=== PATIENT | male | born 1990 | race Caucasian/White ===

== ENCOUNTER 2018-12-15 08:35 | Emergency (ER) | payer SELFPAY ==
[2018-12-15] MEDS ORDERED: Naloxone 0.4 mg/mL 1mL Vial IV ONE (09:06)
[2018-12-15] MEDS ORDERED: Naloxone 0.4 mg/mL 1mL Vial ONE (09:11)
--- NOTE | 2018-12-15 09:11 | ED Physician Chart ---
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 History of Present Illness:: today Allergies:: Allergies Allergy/AdvReac Type Severity Reaction Status Date / Time No Known Allergies Allergy Verified 12/15/18 08:51 Vitals:: Vital Signs - 8 hr 12/15/18 08:42 HR 96 RR 18 BP 109/63 O2 Sat % 98 Review:: Nurse's Note Reviewed, EMS run form Reviewed, Patient unable to respond (homeless intoxicated) ED Review of Systems - Review of Systems General/Constitutional: No fever (unreliable non verbal) ED Past Medical History - Past Medical History Obtainable: No Social History: Alcohol Family Medical History - Family Member Mother History Unknown: Yes ED Physical Exam - Physical Examination General/Constitutional: Awake (lethargic glucose normal no response to narcan), No distress (poor response) Head: Atraumatic Eyes: Lids, conjuctiva normal ENMT: External ears, nose nl Respiratory: Nl effort/Exclusion Cardio Vascular: RRR GI: No tenderness/rebounding/guarding Extremities: No edema ED Assessment - Assessment General Assessment: intoxication altered mental status ED Septic Shock - . Is Septic Shock (SBP<90, OR Lactate>4 mmol\L) present?: No - <6hrs of presentation: Vital Signs: Vital Signs - 8 hr 12/15/18 08:42 HR 96 RR 18 BP 109/63 O2 Sat % 98 ED Reassessment (Disposition) - Reassessment Reassessment Condition:: Improved (awke beligerent refusing) - Patient Disposition Discharge/Transfer:: Elope/AWOL Condition at Disposition:: Stable, Improved (left without telling)
[2018-12-15 09:30] LABS: EOSINOPHILE ABSOLUTE 0.1 Th/cmm (0.1-0.4); RED CELL DISTRIBUTION WIDTH 12.5 % (11.5-20.0); WHITE BLOOD COUNT 5.4 Th/cmm (4.8-10.8)
[2018-12-15 09:51] LABS: % BASOPHILS 1.3 % (0.0-2.0); % EOSINOPHILS 1.9 % (0.0-5.0); % LYMPHOCYTES 23.2 % (20.0-50.0); % MONOCYTES 4.6 % (2.0-10.0); BASOPHILE ABSOLUTE 0.1 Th/cumm (0-0.2); HEMOGLOBIN 14.9 gm/dL (12-16); LYMPHOCYTE ABSOLUTE 1.3 Th/cmm (1.5-3.0); MEAN CELL VOLUME 92.7 fl (80-99); MEAN CORPUSCULAR HEMOGLOBIN 30.7 pg (26.0-30.0); MEAN CORPUSCULAR HGB CONC 33.1 pg (28.0-36.0); MEAN PLATELET VOLUME 6.9 fl; MONOCYTE ABSOLUTE 0.2 Th/cmm (0.3-1.0); NEUTROPHILE ABSOLUTE 3.7 Th/cmm (1.8-8.0); PLATELET COUNT 408 Th/cmm (150-400); RED BLOOD COUNT 4.85 Mil/cmm (4.30-5.70)
[2018-12-15 10:35] LABS: ALB/GLOB RATIO 1.6 (1.0-1.8); ALKALINE PHOSPHATASE 108 U/L (34-104); ANION GAP 14.1 (7.0-16.0); BILIRUBIN,TOTAL 0.8 mg/dL (0.3-1.0); BUN - UREA NITROGEN 8 mg/dL (7-25); CALCIUM SERUM 8.4 mg/dL (8.6-10.3); CARBON DIOXIDE 22.9 mEq/L (21.0-31.0); CHLORIDE 104 mEq/L (98-107); CREATININE - SERUM 0.8 mg/dL (0.7-1.3); GFR AFRICAN-AMERICAN > 60.0 ml/min (>90); GFR NON AFRICAN-AMERICAN > 60.0 ml/min; GLUCOSE 89 mg/dL (70-105); MAGNESIUM 2.3 mg/dL (1.9-2.7); SGOT 31 U/L (13-39); SGPT/ALT 23 U/L (7-52); SODIUM SERUM 138 mEq/L (136-145); TOTAL PROTEIN,SERUM 6.5 gm/dL (6.0-8.3)
[2018-12-15] MEDS ORDERED: 0.9% NS w/40 mEq KCL 1,000 ML IV ONE (10:59)
[2018-12-15] MEDS ORDERED: 0.9% NS w/40 mEq KCL 1,000 ML IV SCH (11:00)
[2018-12-15] MEDS ORDERED: Potassium Chloride 20 mEq ER Tab PO ONE ×2 (14:31→14:50)
== END 2018-12-15 15:11 | disposition left against medical advice (07) ==
LOC: ER 08:35
DX: F10.129 Alcohol abuse with intoxication, unspecified (principal); R41.82 Altered mental status, unspecified; Z59.0 Homelessness
CPT/HCPCS: 99283; 96374; 36415; 85025; 80320; 83735; 80053; J3480; X6614; Z7502